=== PATIENT | male | born 1950 | race Two or more races ===

== ENCOUNTER 2017-06-12 09:23 | Day surgery (SDC) | payer OTHER ==
[~2017-06-12] VITALS: Ht 170.2 cm; Wt 76.4 kg
[~2017-06-12 09:23] MED LIST: BUPIVACAINE/PF 0.5% ONE; CEFD300C37 PO; FERR325T20 PO; FURO-93 PO; HEPARIN 1,000 UNITS/ML, 10ML ONE; LISI2.5T PO; METO50TA82 PO; PROTAMINE SULFATE 10 MG/ML, 5ML ONE; SPIR100T PO; THROMBIN 20,000 UNIT VIAL TP ONE; THROMBIN 5,000 UNIT VIAL TP ONE
[2017-06-12] MEDS ORDERED: MIDAZOLAM 1 MG/ML, 2ML ONE (10:12)
[2017-06-12] MEDS ORDERED: FENTANYL PF 100 MCG/2ML ONE ×2 (10:12)
[2017-06-12] MEDS ORDERED: NONE PER PT (10:37)
[2017-06-12 10:38] VITALS: BP 152/86
[2017-06-12] MEDS ORDERED: SODIUM CHLORIDE 0.9% 1,000 ML IV SCH (10:45)
[2017-06-12] MEDS ORDERED: HEPARIN 1,000 UNITS/ML, 10ML IV ONE (11:20)
[2017-06-12] MEDS ORDERED: PROPOFOL 10 MG/ML, 20ML ONE (11:25)
[2017-06-12] MEDS ORDERED: CEFAZOLIN 1,000 MG ONE (11:25)
[2017-06-12] MEDS ORDERED: GLYCOPYRROLATE 0.2MG/1ML ONE (11:25)
[2017-06-12] MEDS ORDERED: ROCURONIUM 10 MG/ML ONE (11:25)
[2017-06-12] MEDS ORDERED: NEOSTIGMINE 1 MG/ML, 10ML ONE (11:25)
[2017-06-12] MEDS ORDERED: PHENYLEPHRINE 10 MG/ML ONE (11:25)
[2017-06-12] MEDS ORDERED: FENTANYL PF 100 MCG/2ML IV PRN (11:30)
[2017-06-12] MEDS ORDERED: HYDROmorphone 1 MG/ML, 1ML IV PRN (11:30)
[2017-06-12] MEDS ORDERED: LABETALOL 5MG/ML, 20ML IV PRN (11:30)
[2017-06-12] MEDS ORDERED: ONDANSETRON 2MG/ML, 2ML IVPush PRN (11:30)
[2017-06-12] MEDS ORDERED: OXYcodone 5 MG/5 ML ORAL.SOL UDC PO PRN (11:30)
[2017-06-12] MEDS ORDERED: PROMETHAZINE 25 MG/ML, 1ML IV PRN (11:30)
[2017-06-12] MEDS ORDERED: hydrALAzine 20 MG/ML, 1ML IV PRN (11:30)
== END 2017-06-12 16:00 ==
LOC: OUT 09:23
PROVIDERS: ATTEND Surgery Vascular Surgery
DX: I12.0 Hypertensive chronic kidney disease with stage 5 chronic kidney disease or end stage renal disease (principal); N18.6 End stage renal disease
CPT/HCPCS: 36415; 36821; 80047; 93005; J1644; J2250; J3010; J7030; J0690; J2704; J2710; J2720; J3490; J2370

== ENCOUNTER 2017-08-07 08:39 | Day surgery (SDC) | payer OTHER ==
[~2017-08-07] VITALS: Ht 170.2 cm; Wt 82.4 kg
[~2017-08-07 08:39] MED LIST changes: -BUPIVACAINE/PF 0.5% ONE; +FERR325T18 PO; -FERR325T20 PO; +NONE PER PT; -THROMBIN 20,000 UNIT VIAL TP ONE; -THROMBIN 5,000 UNIT VIAL TP ONE
[2017-08-07] MEDS ORDERED: CALC667T PO (09:33)
[2017-08-07] MEDS ORDERED: SODIUM CHLORIDE 0.9% 1,000 ML IV SCH (09:34)
[2017-08-07 09:51] VITALS: BP 172/90
[2017-08-07] MEDS ORDERED: PLEASE ENTER HEIGHT AND WEIGHT MC SCH (10:00)
[2017-08-07] MEDS ORDERED: MIDAZOLAM 1 MG/ML, 2ML ONE (10:25)
[2017-08-07] MEDS ORDERED: FENTANYL PF 100 MCG/2ML ONE (10:25)
[2017-08-07] MEDS ORDERED: PROPOFOL 10 MG/ML, 20ML ONE (10:36)
[2017-08-07] MEDS ORDERED: CEFAZOLIN 1,000 MG ONE ×2 (10:36)
[2017-08-07] MEDS ORDERED: HYDROmorphone 1 MG/ML, 1ML IV PRN (11:30)
[2017-08-07] MEDS ORDERED: FENTANYL PF 100 MCG/2ML IV PRN (11:30)
[2017-08-07] MEDS ORDERED: ACETAMINOPHEN 325 MG TABLET PO PRN (11:30)
[2017-08-07] MEDS ORDERED: hydrALAzine 20 MG/ML, 1ML IV PRN (11:30)
[2017-08-07] MEDS ORDERED: OXYcodone 5 MG/5 ML ORAL.SOL UDC PO PRN (11:30)
[2017-08-07] MEDS ORDERED: LABETALOL 5MG/ML, 20ML IV PRN (11:30)
[2017-08-07] MEDS ORDERED: ONDANSETRON 2MG/ML, 2ML IVPush PRN (11:30)
[2017-08-07] MEDS ORDERED: PROMETHAZINE 25 MG/ML, 1ML IV PRN (11:30)
[2017-08-07] MEDS ORDERED: OXYcodone 5 MG/5 ML ORAL.SOL UDC ONE (12:07)
== END 2017-08-07 15:35 | disposition home or self-care (01) ==
LOC: OUT 08:39
PROVIDERS: ATTEND Surgery Vascular Surgery
DX: T82.590A Other mechanical complication of surgically created arteriovenous fistula, initial encounter (principal); N19 Unspecified kidney failure; Y83.8 Other surgical procedures as the cause of abnormal reaction of the patient, or of later complication, without mention of misadventure at the time of the procedure; Y92.89 Other specified places as the place of occurrence of the external cause
CPT/HCPCS: 36415; 36821; 37607; 80047; J0690; J1644; J2250; J2704; J3010; J7030; J2720

== ENCOUNTER 2018-05-21 17:14 | Inpatient (IN) | payer MEDICARE ==
[~2018-05-21] VITALS: Ht 170.2 cm; Wt 77.9 kg
[~2018-05-21 17:14] MED LIST changes: +CALC667T PO; -HEPARIN 1,000 UNITS/ML, 10ML ONE; -PROTAMINE SULFATE 10 MG/ML, 5ML ONE
[2018-05-21] MEDS ORDERED: SODIUM CHLORIDE FLUSH 10ML SYR IVF ONE (18:00)
[2018-05-21 18:20] LABS: ALANINE AMINOTRANSFERASE 30 U/L (12-78); ALBUMIN 3.1 g/dL (3.4-5.0); ANION GAP 11 mmol/L (5-15); CALCIUM 8.3 mg/dL (8.5-10.1); CHLORIDE 110 mmol/L (98-107); CREATININE 5.95 mg/dL (0.7-1.3)
[2018-05-21] MEDS ORDERED: LACTULOSE 20 GM/30 ML UDC NG ONE (18:22)
[2018-05-21 18:24] LABS: ALKALINE PHOSPHATASE 88 U/L (45-117); BILIRUBIN,TOTAL 0.9 mg/dL (0.2-1.0); TOTAL PROTEIN 6.7 g/dL (6.4-8.2); TROPONIN I < 0.015 ng/mL (0.000-0.045)
[2018-05-21 18:43] LABS: MEAN CORPUSCULAR HEMOGLOBIN 29.4 pg (27.5-34.5); MEAN CORPUSCULAR HGB CONC 33.9 g/dL (33.2-36.2); MEAN CORPUSCULAR VOLUME 86.6 fL (81-97); MEAN PLATELET VOLUME 8.4 fL (7.4-10.4); PLATELET COUNT 77 x10^3/uL (130-400); RED BLOOD COUNT 3.13 x10^6/uL (4.38-5.82); RED CELL DISTRIBUTION WIDTH 15.7 % (9.4-14.8)
[2018-05-21 18:44] LABS: MD YES
[2018-05-21 18:47] LABS: BAND#(MANUAL) 0.36 x10^3/uL; BANDS%(MANUAL) 7 % (0-7); LYMPHS% (MANUAL) 2 % (22-44); METAMYELOCYTES% (MANUAL) 2 % (0-1); SEG#(MANUAL) 4.63 x10^3/uL (1.8-6.8); SEGS% (MANUAL) 89 % (42-75)
[2018-05-21 18:48] LABS: ANISOCYTOSIS 1+; HYPOCHROMIA 1+; MICROCYTOSIS 1+
[2018-05-21 18:49] LABS: OVALOCYTES 1+; POLYCHROMASIA 2+
[2018-05-21 18:50] LABS: <PLATELET ESTIMATE> DECREASED; <PLT MORPHOLOGY> NORMAL PLT MORPH; TEAR DROPS 1+; TOXIC GRAN 1+
[2018-05-21] MEDS ORDERED: AMLO10TA2 PO (19:23)
[2018-05-21] MEDS ORDERED: ONDANSETRON 2MG/ML, 2ML IVPush PRN (19:30)
[2018-05-21] MEDS ORDERED: BISACODYL 10 MG SUPP PR PRN (19:30)
[2018-05-21 19:32] LABS: INTERNATIONAL NORMALIZED RATIO 1.17 (0.93-1.1); PROTHROMBIN TIME 12.1 Seconds (9.6-11.5)
[2018-05-21] MEDS: NICOTINE 21 MG/24 HR PATCH.TD24 TD SCH (20:52)
[2018-05-21] MEDS ORDERED: NEOMYCIN SULFATE 500 MG TABLET NG ONE (21:00)
[2018-05-21 22:35] VITALS: BP 137/70
[2018-05-21] MEDS: LACTULOSE 20 GM/30 ML UDC PO SCH (23:47)
[2018-05-22 02:01] LABS: MICROSCOPIC AUTO
[2018-05-22 02:02] LABS: CULTURE INDICATED? NO
[2018-05-22 02:07] LABS: POTASSIUM,URINE RANDOM 44 mmol/L; SODIUM,URINE RANDOM 45 mmol/L
[2018-05-22 02:10] LABS: CHLORIDE,URINE RANDOM < 10 mmol/L
[2018-05-22 02:12] LABS: AMPHETAMINE SCREEN, URINE Negative (Negative); BARBITURATE SCREEN, URINE Negative (Negative); BENZODIAZEPINE SCREEN, URINE Negative (Negative); CANNABINOID SCREEN, URINE Negative (Negative); COCAINE SCREEN, URINE Negative (Negative); METHADONE SCREEN, URINE Negative (Negative); OPIATE SCREEN, URINE Negative (Negative)
[2018-05-22 03:03] VITALS: BP_SYST 179; BP_SYST 191; BP_DIAS 86; BP_DIAS 91
[2018-05-22] MEDS ORDERED: LABETALOL 5MG/ML, 20ML IVPush ONE (04:00)
[2018-05-22 04:10] VITALS: BP 138/88
[2018-05-22 05:29] LABS: MEAN CORPUSCULAR HGB CONC 34.6 g/dL (33.2-36.2); MEAN CORPUSCULAR VOLUME 86.8 fL (81-97); RED CELL DISTRIBUTION WIDTH 15.3 % (9.4-14.8)
[2018-05-22 05:35] LABS: ALBUMIN 3.3 g/dL (3.4-5.0); ANION GAP 14 mmol/L (5-15); CALCIUM 8.3 mg/dL (8.5-10.1); CHLORIDE 112 mmol/L (98-107)
[2018-05-22 05:38] LABS: ALANINE AMINOTRANSFERASE 30 U/L (12-78); ALKALINE PHOSPHATASE 84 U/L (45-117); BILIRUBIN,TOTAL 1.1 mg/dL (0.2-1.0); CREATININE 5.69 mg/dL (0.7-1.3); TOTAL PROTEIN 6.8 g/dL (6.4-8.2)
[2018-05-22 06:17] LABS: BASOPHILS % (AUTO) 0 % (0-1); EOSINOPHILS # (AUTO) 0.02 x10^3/uL (0-0.4); EOSINOPHILS % (AUTO) 0 % (1-7); LYMPHOCYTES # (AUTO) 0.18 x10^3/uL (1-3.4); LYMPHOCYTES % (AUTO) 4 % (22-44); MD SCAN; MEAN PLATELET VOLUME 8.7 fL (7.4-10.4); MONOCYTES # (AUTO) 0.28 x10^3/uL (0.2-0.8); MONOCYTES % (AUTO) 6 % (2-9); NEUTROPHILS # (AUTO) 4.02 x10^3/uL (1.8-6.8); NEUTROPHILS % (AUTO) 89 % (42-75); PLATELET COUNT 63 x10^3/uL (130-400)
[2018-05-22 06:50] VITALS: BP 148/86
[2018-05-22] MEDS: LACTULOSE 20 GM/30 ML UDC PO SCH ×3 (10:24→21:56)
[2018-05-22 14:44] VITALS: BP 145/88
[2018-05-22] MEDS: NICOTINE 21 MG/24 HR PATCH.TD24 TD SCH (18:54)
[2018-05-22 20:16] VITALS: BP 158/90
[2018-05-23 01:40] VITALS: BP 145/92
[2018-05-23 02:18] LABS: MEAN CORPUSCULAR HEMOGLOBIN 29.7 pg (27.5-34.5); MEAN CORPUSCULAR HGB CONC 34.2 g/dL (33.2-36.2); MEAN CORPUSCULAR VOLUME 86.7 fL (81-97); MEAN PLATELET VOLUME 8.4 fL (7.4-10.4); PLATELET COUNT 75 x10^3/uL (130-400); RED CELL DISTRIBUTION WIDTH 15.4 % (9.4-14.8)
[2018-05-23 02:32] LABS: ALBUMIN 3.6 g/dL (3.4-5.0); ANION GAP 12 mmol/L (5-15); CALCIUM 8.6 mg/dL (8.5-10.1); CHLORIDE 102 mmol/L (98-107)
[2018-05-23 02:35] LABS: ALANINE AMINOTRANSFERASE 32 U/L (12-78); ALKALINE PHOSPHATASE 91 U/L (45-117); BASOPHILS # (AUTO) 0.03 x10^3/uL (0-0.1); BASOPHILS % (AUTO) 1 % (0-1); BILIRUBIN,TOTAL 1.1 mg/dL (0.2-1.0); CREATININE 5.34 mg/dL (0.7-1.3); EOSINOPHILS # (AUTO) 0.04 x10^3/uL (0-0.4); EOSINOPHILS % (AUTO) 1 % (1-7); LYMPHOCYTES # (AUTO) 0.25 x10^3/uL (1-3.4); LYMPHOCYTES % (AUTO) 4 % (22-44); MD SCAN; MONOCYTES # (AUTO) 0.53 x10^3/uL (0.2-0.8); MONOCYTES % (AUTO) 9 % (2-9); NEUTROPHILS # (AUTO) 4.93 x10^3/uL (1.8-6.8); NEUTROPHILS % (AUTO) 85 % (42-75); TOTAL PROTEIN 7.3 g/dL (6.4-8.2)
[2018-05-23 07:07] VITALS: BP 128/92
[2018-05-23] MEDS: LACTULOSE 20 GM/30 ML UDC PO SCH ×3 (08:16→20:06)
[2018-05-23 13:47] VITALS: BP 157/87
[2018-05-23 19:25] VITALS: BP 145/77
[2018-05-23] MEDS: NICOTINE 21 MG/24 HR PATCH.TD24 TD SCH (20:05)
[2018-05-24 02:17] VITALS: BP 139/79
[2018-05-24 06:14] LABS: MEAN CORPUSCULAR HEMOGLOBIN 29.6 pg (27.5-34.5); MEAN CORPUSCULAR HGB CONC 33.9 g/dL (33.2-36.2); MEAN CORPUSCULAR VOLUME 87.2 fL (81-97); MEAN PLATELET VOLUME 8.7 fL (7.4-10.4); PLATELET COUNT 74 x10^3/uL (130-400); RED BLOOD COUNT 3.24 x10^6/uL (4.38-5.82); RED CELL DISTRIBUTION WIDTH 15.5 % (9.4-14.8)
[2018-05-24 06:22] LABS: ALBUMIN 3.2 g/dL (3.4-5.0); ANION GAP 15 mmol/L (5-15); CALCIUM 7.9 mg/dL (8.5-10.1); CHLORIDE 99 mmol/L (98-107)
[2018-05-24 06:24] LABS: CREATININE 6.48 mg/dL (0.7-1.3)
[2018-05-24 06:33] LABS: BASOPHILS % (AUTO) 0 % (0-1); EOSINOPHILS # (AUTO) 0.14 x10^3/uL (0-0.4); EOSINOPHILS % (AUTO) 2 % (1-7); LYMPHOCYTES # (AUTO) 0.28 x10^3/uL (1-3.4); LYMPHOCYTES % (AUTO) 5 % (22-44); MD SCAN; MONOCYTES # (AUTO) 0.58 x10^3/uL (0.2-0.8); MONOCYTES % (AUTO) 10 % (2-9); NEUTROPHILS # (AUTO) 4.99 x10^3/uL (1.8-6.8); NEUTROPHILS % (AUTO) 83 % (42-75)
[2018-05-24 08:16] VITALS: BP 137/84
[2018-05-24] MEDS: LACTULOSE 20 GM/30 ML UDC PO SCH ×3 (10:10→22:30)
[2018-05-24 13:16] VITALS: BP 151/93
[2018-05-24 19:45] VITALS: BP 130/77
[2018-05-24] MEDS: NICOTINE 21 MG/24 HR PATCH.TD24 TD SCH (22:28)
[2018-05-25 02:26] VITALS: BP 122/74
[2018-05-25 05:48] LABS: ALBUMIN 3.1 g/dL (3.4-5.0); ANION GAP 13 mmol/L (5-15); CALCIUM 7.9 mg/dL (8.5-10.1); CHLORIDE 98 mmol/L (98-107)
[2018-05-25 05:49] LABS: CREATININE 5.37 mg/dL (0.7-1.3)
[2018-05-25 05:51] LABS: MEAN CORPUSCULAR HEMOGLOBIN 29.5 pg (27.5-34.5); MEAN CORPUSCULAR HGB CONC 34.2 g/dL (33.2-36.2); MEAN CORPUSCULAR VOLUME 86.2 fL (81-97); MEAN PLATELET VOLUME 8.9 fL (7.4-10.4); PLATELET COUNT 69 x10^3/uL (130-400); RED BLOOD COUNT 3.26 x10^6/uL (4.38-5.82); RED CELL DISTRIBUTION WIDTH 15.4 % (9.4-14.8)
[2018-05-25 06:17] LABS: BASOPHILS % (AUTO) 0 % (0-1); EOSINOPHILS # (AUTO) 0.17 x10^3/uL (0-0.4); EOSINOPHILS % (AUTO) 3 % (1-7); LYMPHOCYTES # (AUTO) 0.25 x10^3/uL (1-3.4); LYMPHOCYTES % (AUTO) 4 % (22-44); MD SCAN; MONOCYTES # (AUTO) 0.61 x10^3/uL (0.2-0.8); MONOCYTES % (AUTO) 10 % (2-9); NEUTROPHILS % (AUTO) 84 % (42-75)
[2018-05-25 07:27] VITALS: BP 119/81
[2018-05-25] MEDS: LACTULOSE 20 GM/30 ML UDC PO SCH ×3 (07:40→21:50)
[2018-05-25] MEDS: SEVELAMER CARBONATE 800MG TAB PO SCH ×2 (12:49→18:02)
[2018-05-25 14:08] VITALS: BP 133/78
[2018-05-25 20:23] VITALS: BP 104/66
[2018-05-25] MEDS: NICOTINE 21 MG/24 HR PATCH.TD24 TD SCH (21:49)
[2018-05-26 00:43] VITALS: BP 122/77
[2018-05-26 06:14] LABS: MEAN CORPUSCULAR HEMOGLOBIN 29.5 pg (27.5-34.5); MEAN CORPUSCULAR HGB CONC 33.9 g/dL (33.2-36.2); MEAN CORPUSCULAR VOLUME 86.9 fL (81-97); MEAN PLATELET VOLUME 9.6 fL (7.4-10.4); PLATELET COUNT 75 x10^3/uL (130-400); RED BLOOD COUNT 3.28 x10^6/uL (4.38-5.82); RED CELL DISTRIBUTION WIDTH 15.9 % (9.4-14.8)
[2018-05-26 06:22] LABS: ALBUMIN 3.3 g/dL (3.4-5.0); ANION GAP 11 mmol/L (5-15); CALCIUM 8.3 mg/dL (8.5-10.1); CHLORIDE 97 mmol/L (98-107); CREATININE 4.95 mg/dL (0.7-1.3)
[2018-05-26 06:48] LABS: BASOPHILS % (AUTO) 0 % (0-1); EOSINOPHILS # (AUTO) 0.01 x10^3/uL (0-0.4); EOSINOPHILS % (AUTO) 0 % (1-7); LYMPHOCYTES % (AUTO) 5 % (22-44); MD SCAN; MONOCYTES # (AUTO) 0.82 x10^3/uL (0.2-0.8); MONOCYTES % (AUTO) 11 % (2-9); NEUTROPHILS # (AUTO) 6.39 x10^3/uL (1.8-6.8); NEUTROPHILS % (AUTO) 84 % (42-75)
[2018-05-26 06:54] VITALS: BP 114/69
[2018-05-26] MEDS: LACTULOSE 20 GM/30 ML UDC PO SCH ×6 (07:22→17:00)
[2018-05-26] MEDS: SEVELAMER CARBONATE 800MG TAB PO SCH ×3 (08:55→18:16)
[2018-05-26] MEDS ORDERED: LACT20SO13 PO (15:44)
[2018-05-26] MEDS ORDERED: NICO-487 TD (15:44)
[2018-05-26] MEDS ORDERED: SEVE800T8 PO (15:44)
== END 2018-05-26 18:20 | disposition home health service (06) | DRG 314 ==
LOC: ED 18:42 → EDIP 18:47 → 4EST 20:04
PROVIDERS: ADMIT Hospitalist; ATTEND Hospitalist
PROC: 3E1M39Z Irrigation of Peritoneal Cavity using Dialysate, Percutaneous Approach (ICD-10-PCS; 2018-05-21)
PROC: 5A1D70Z Performance of Urinary Filtration, Intermittent, Less than 6 Hours Per Day (ICD-10-PCS; principal; 2018-05-22)
DX: T82.590A Other mechanical complication of surgically created arteriovenous fistula, initial encounter (principal); K72.00 Acute and subacute hepatic failure without coma; N18.6 End stage renal disease; N17.9 Acute kidney failure, unspecified; E44.0 Moderate protein-calorie malnutrition; E87.0 Hyperosmolality and hypernatremia; E87.1 Hypo-osmolality and hyponatremia; I13.2 Hypertensive heart and chronic kidney disease with heart failure and with stage 5 chronic kidney disease, or end stage renal disease; K56.7 Ileus, unspecified; K76.6 Portal hypertension; T85.611A Breakdown (mechanical) of intraperitoneal dialysis catheter, initial encounter; B18.2 Chronic viral hepatitis C; D63.1 Anemia in chronic kidney disease; Y83.2 Surgical operation with anastomosis, bypass or graft as the cause of abnormal reaction of the patient, or of later complication, without mention of misadventure at the time of the procedure; E78.5 Hyperlipidemia, unspecified; F17.210 Nicotine dependence, cigarettes, uncomplicated; D69.6 Thrombocytopenia, unspecified; I27.81 Cor pulmonale (chronic); I50.9 Heart failure, unspecified; K74.60 Unspecified cirrhosis of liver; N25.0 Renal osteodystrophy; Z99.2 Dependence on renal dialysis; Z68.26 Body mass index [BMI] 26.0-26.9, adult; Z90.49 Acquired absence of other specified parts of digestive tract; Y92.89 Other specified places as the place of occurrence of the external cause
CPT/HCPCS: 36415; 70450; 71045; 74018; 80053; 80069; 80307; 81001; 82140; 82306; 82436; 82570; 83735; 83970; 84133; 84300; 84484; 85025; 85610; 85730; 86704; 86706; 87340; 93005; 96374; 99285; J2405